=== PATIENT | female | born 1965 | race Asian ===

== ENCOUNTER → 2024-07-14 | Outpatient (CLI) | payer SELFPAY ==
[2024-07-14 14:33] LABS: THYROID STIMULATING HORMONE 0.01 uIU/ML (0.55-4.78)
[2024-07-14 14:34] LABS: FREE T4 1.85 NG/DL (0.89-1.76)
[2024-07-15 14:41] LABS: THRYOGLOBULIN ANTIBODIES (ATA) 61 IU/mL (< or = 1); THYROGLOBULIN QUANTITATIVE < 0.1 ng/mL (2.8-40.9)
== END ==
LOC: M PLALAB 10:16
PROVIDERS: ATTEND Student in an Organized Health Care Education/Training Program
DX: C73 Malignant neoplasm of thyroid gland (principal)